=== PATIENT | male | born 1970 | race Two or more races ===

== ENCOUNTER 2017-02-26 11:02 | Emergency (ER) | payer SELFPAY ==
[2017-02-26 11:36] LABS: ABSOLUTE NEUTROPHIL COUNT 3.8 K/mm3 (1.8-7.7); BASO # 0.1 K/mm3 (0.0-0.2); BASO % 0.7 % (0.2-1.0); EOS # 0.2 (0.0-0.5); EOS % 3.3 % (0.9-2.9); HEMATOCRIT 46.8 % (32.0-52.0); HEMOGLOBIN 15.8 gm/l (14.0-18.0); IMM NEUT% 0.6 % (0-1); LYMPH # 2.6 (1.0-4.8); LYMPH % 36.3 % (15-45); MEAN CELL VOLUME 89.7 fl (80.0-94.0); MEAN CORPUSCULAR HEMOGLOBIN 30.3 pg (27.0-31.0); MEAN CORPUSCULAR HGB CONC 33.8 g/dl (33.0-37.0); MEAN PLATELET VOLUME 10.2 fl (7.4-10.4); MONO # 0.5 (0.0-0.8); MONO % 6.9 % (4-12); NEUT % 52.2 % (43-75); PLATELET COUNT 278 K/mm3 (130-400); RED CELL DISTRIBUTION WIDTH 11.7 % (11.5-14.5)
[2017-02-26] MEDS ORDERED: ONDANSETRON 4 MG/2ML 2 ML VIAL ONE (11:41)
[2017-02-26 11:53] LABS: ALB/GLOB RATIO 1.3 (>1.0); ALBUMIN 4.1 gm/dL (3.5-5.7)
[2017-02-26 12:49] LABS: SPECIFIC GRAVITY 1.015 (1.001-1.030); URINE BILIRUBIN NEGATIVE (NEGATIVE); URINE BLOOD NEGATIVE (NEGATIVE); URINE GLUCOSE (UA) 3+ (NEGATIVE); URINE LEUKOCYTE ESTERASE NEGATIVE (NEGATIVE); URINE NITRITE NEGATIVE (NEGATIVE); URINE PROTEIN NEGATIVE (NEGATIVE); URINE UROBILINOGEN NORMAL (0-1 mg/dl)
[2017-02-26 12:53] LABS: URINE APPEARANCE CLEAR; URINE COLOR YELLOW
== END 2017-02-26 13:15 | disposition home or self-care (01) ==
LOC: ED 11:02
DX: E11.65 Type 2 diabetes mellitus with hyperglycemia (principal)
CPT/HCPCS: 83690; 85025; 80053; 81003; 99283 ×2; 96374; 96361; J2405